=== PATIENT | female | born 1995 | race Caucasian/White ===

== ENCOUNTER 2019-03-27 15:16 | Inpatient (IN) | payer BC ==
[2019-03-27 16:55] LABS: ADD UMIC NO; UR ASCORBIC ACID NEGATIVE (NEGATIVE); UR BILIRUBIN (Dip) NEGATIVE (NEGATIVE); UR BLOOD (Dip) NEGATIVE (NEGATIVE); UR CLARITY CLEAR (CLEAR); UR COLOR YELLOW (YELLOW); UR GLUCOSE (Dip) NEGATIVE (NEGATIVE); UR KETONES (Dip) NEGATIVE (NEGATIVE); UR LEUKOCYTE ESTERASE (Dip) NEGATIVE Leu/ul (NEGATIVE); UR NITRITE (Dip) NEGATIVE (NEGATIVE); UR SPECIFIC GRAVITY (Dip) 1.008 (1.003-1.030); UR TOTAL PROTEIN (Dip) NEGATIVE (NEGATIVE); UR UROBILINOGEN (Dip) NEGATIVE (NEGATIVE)
[2019-03-27 17:07] LABS: ADD MAN DIFF? NO
[2019-03-27 17:10] LABS: WHITE BLOOD COUNT 13.9 10^3/ul (4.8-10.8)
[2019-03-27 17:10] LABS: BASOPHIL # 0.1 10^3/ul (0.0-0.1); BASOPHILS % 0.6 % (0.0-2.0); EOSINOPHILS # 0.1 10^3/ul (0.0-0.5); EOSINOPHILS % 0.5 % (0.0-7.0); HEMATOCRIT 33.9 % (37.0-47.0); HEMOGLOBIN 11.3 g/dl (12.0-16.0); LYMPHOCYTES # 2.6 10^3/ul (0.8-2.9); LYMPHOCYTES % 18.6 % (15.0-51.0); MEAN CORPUSCULAR HEMOGLOBIN 28.1 pg (29.0-33.0); MEAN CORPUSCULAR HGB CONC 33.3 g/dl (32.0-37.0); MEAN CORPUSCULAR VOLUME 84.3 fl (82.0-101.0); MEAN PLATELET VOLUME 10.3 fl (7.4-10.4); MONOCYTE # 0.8 10^3/ul (0.3-0.9); NEUTROPHIL # 10.2 10^3/ul (1.6-7.5); NEUTROPHILS % 73.4 % (39.0-77.0); PLATELET COUNT 265 10^3/UL (140-415); RED BLOOD COUNT 4.02 10^6/ul (4.20-5.40); RED CELL DISTRIBUTION WIDTH 13.8 % (11.5-14.5)
[2019-03-27] MEDS ORDERED: TERBUTALINE 1 ML (18:13)
[2019-03-27] MEDS: TERBUTALINE 1 MG/ML INJ SC ×3 (18:20→22:53)
[2019-03-27] MEDS: LACTATED RINGER'S 1,000 ML IV ×2 (18:20→18:43)
[2019-03-28] MEDS: LACTATED RINGER'S 1,000 ML IV ×3 (02:31→18:26)
[2019-03-28] MEDS: PRENATAL VITAMIN PO (08:56)
[2019-03-28] MEDS: NIFEdipine 10 MG CAP PO (18:11)
[2019-03-28] MEDS: CEFTRIAXONE 1 GM/50 ML (PMX) 50 ML IVPB (18:41)
[2019-03-29] MEDS: DOCUSATE SODIUM 100 MG CAP PO ×3 (00:19→22:10)
[2019-03-29] MEDS: NIFEdipine 10 MG CAP PO ×5 (00:19→23:55)
[2019-03-29] MEDS: LACTATED RINGER'S 1,000 ML IV ×2 (02:47→19:00)
[2019-03-29 03:41] LABS: AMPHETAMINE/METHAMPHETAMINE Negative (NEGATIVE); BARBITURATES Negative (NEGATIVE); BENZODIAZEPINES Negative (NEGATIVE); CANNABINOIDS Negative (NEGATIVE); COCAINE Negative (NEGATIVE); OPIATES Negative (NEGATIVE)
[2019-03-29] MEDS: PRENATAL VITAMIN PO (09:10)
[2019-03-29] MEDS: SOD CHLORIDE 0.9% 1,000 ML IV ×2 (12:22→19:21)
[2019-03-29] MEDS: CEFTRIAXONE 1 GM/50 ML (PMX) 50 ML IVPB (18:42)
[2019-03-30] MEDS: SOD CHLORIDE 0.9% 1,000 ML IV ×2 (05:28)
[2019-03-30] MEDS: NIFEdipine 10 MG CAP PO ×3 (05:58→17:57)
[2019-03-30] MEDS: PRENATAL VITAMIN PO (08:42)
[2019-03-30] MEDS: DOCUSATE SODIUM 100 MG CAP PO ×2 (08:42→21:52)
[2019-03-30] MEDS ORDERED: LACTATED RINGER'S 1,000 ML IV (11:00)
[2019-03-30] MEDS: PROGESTERONE 100 MG CAP VAG (21:52)
[2019-03-30] MEDS: NITROFURANTOIN (SR) 100 MG CAP PO (21:52)
[2019-03-31] MEDS: PRENATAL VITAMIN PO (09:15)
[2019-03-31] MEDS: NITROFURANTOIN (SR) 100 MG CAP PO (09:15)
[2019-03-31] MEDS: DOCUSATE SODIUM 100 MG CAP PO (09:15)
[2019-03-31] MEDS: PROGESTERONE 100 MG CAP VAG (09:16)
== END 2019-03-31 17:21 | disposition home or self-care (01) | DRG 832 ==
LOC: OBT 15:16 → PP1 03-30 10:29 → L-D 15:16 → PP1 03-30 10:30 → L-D 15:40 → OBT 17:43 → L-D 17:43
DX: O23.42 Unspecified infection of urinary tract in pregnancy, second trimester (principal); O26.872 Cervical shortening, second trimester; O47.02 False labor before 37 completed weeks of gestation, second trimester; Z3A.22 22 weeks gestation of pregnancy
CPT/HCPCS: 76815; 76817; 80307; 81003; 85025; 87086

== ENCOUNTER 2019-04-01 17:00 | Inpatient (IN) | payer BC ==
[2019-04-01] MEDS: DOCUSATE SODIUM 100 MG CAP PO (00:30)
[2019-04-01] MEDS ORDERED: NITROFURANTOIN (SR) 100 MG CAP PO (21:30)
[2019-04-01] MEDS ORDERED: PROGESTERONE 100 MG CAP VAG (22:00)
[2019-04-01] MEDS: NITROFURANTOIN (SR) 100 MG CAP PO (23:27)
[2019-04-01] MEDS: PROGESTERONE 100 MG CAP VAG (23:28)
[2019-04-01] MEDS: LACTATED RINGER'S 1,000 ML IV (23:40)
[2019-04-02 00:12] LABS: ADD MAN DIFF? NO
[2019-04-02 00:16] LABS: BASOPHIL # 0.1 10^3/ul (0.0-0.1); BASOPHILS % 0.4 % (0.0-2.0); EOSINOPHILS # 0.1 10^3/ul (0.0-0.5); EOSINOPHILS % 0.8 % (0.0-7.0); HEMATOCRIT 34.6 % (37.0-47.0); HEMOGLOBIN 11.6 g/dl (12.0-16.0); LYMPHOCYTES # 2.2 10^3/ul (0.8-2.9); LYMPHOCYTES % 19.9 % (15.0-51.0); MEAN CORPUSCULAR HGB CONC 33.5 g/dl (32.0-37.0); MEAN CORPUSCULAR VOLUME 83.4 fl (82.0-101.0); MEAN PLATELET VOLUME 10.5 fl (7.4-10.4); MONOCYTE # 0.8 10^3/ul (0.3-0.9); NEUTROPHILS % 71.4 % (39.0-77.0); PLATELET COUNT 300 10^3/UL (140-415); RED BLOOD COUNT 4.15 10^6/ul (4.20-5.40); RED CELL DISTRIBUTION WIDTH 13.5 % (11.5-14.5)
[2019-04-02 00:16] LABS: WHITE BLOOD COUNT 11.2 10^3/ul (4.8-10.8)
[2019-04-02 00:26] LABS: ADD UMIC NO; UR AMORPHOUS CRYSTAL FEW /HPF (NONE SEEN); UR ASCORBIC ACID NEGATIVE (NEGATIVE); UR BACTERIA FEW /HPF (NONE SEEN); UR BILIRUBIN (Dip) NEGATIVE (NEGATIVE); UR BLOOD (Dip) NEGATIVE (NEGATIVE); UR CLARITY SLIGHTLY CLOUDY (CLEAR); UR COLOR STRAW (YELLOW); UR GLUCOSE (Dip) NEGATIVE (NEGATIVE); UR KETONES (Dip) NEGATIVE (NEGATIVE); UR LEUKOCYTE ESTERASE (Dip) NEGATIVE Leu/ul (NEGATIVE); UR NITRITE (Dip) NEGATIVE (NEGATIVE); UR RBC 1 /HPF (0-5); UR SPECIFIC GRAVITY (Dip) 1.004 (1.003-1.030); UR SQUAMOUS EPITHELIAL CELL FEW /HPF (FEW); UR TOTAL PROTEIN (Dip) NEGATIVE (NEGATIVE); UR UROBILINOGEN (Dip) NEGATIVE (NEGATIVE); UR WBC 0 /HPF (0-5)
[2019-04-02 00:49] LABS: INR 0.89; PROTIME 12.2 Sec (11.9-14.9)
[2019-04-02 00:50] LABS: PARTIAL THROMBOPLASTIN TIME 29.2 Sec (23.0-35.0)
[2019-04-02] MEDS: LACTATED RINGER'S 1,000 ML IV ×2 (05:48→16:21)
[2019-04-02] MEDS: DEXTROSE 5%-LR 1,000 ML IV ×4 (06:00→22:00)
[2019-04-02] MEDS: PRENATAL VITAMIN PO (10:08)
[2019-04-02] MEDS: NITROFURANTOIN (SR) 100 MG CAP PO ×2 (10:08→20:55)
[2019-04-02] MEDS: DOCUSATE SODIUM 100 MG CAP PO ×3 (10:08→22:00)
[2019-04-02 11:33] LABS: ALANINE AMINOTRANSFERASE 28 IU/L (13-69); ALBUMIN 3.3 g/dl (3.3-4.9); ALBUMIN/GLOBULIN RATIO 1.03; ALKALINE PHOSPHATASE 58 IU/L (42-121); ANION GAP 8 (5-13); ASPARTATE AMINO TRANSFERASE 29 IU/L (15-46); BLOOD UREA NITROGEN 7 mg/dl (7-20); CARBON DIOXIDE 24 mmol/L (21-31); CHLORIDE 105 mmol/L (97-110); Estimated GFR > 60 mL/min (>60); GLUCOSE 80 mg/dl (70-220); POTASSIUM 3.5 mmol/L (3.5-5.1); SODIUM 137 mmol/L (135-144); TOTAL PROTEIN 6.5 g/dl (6.1-8.1)
[2019-04-02] MEDS: MAGNESIUM SULFATE 4 GM/100 ML 100 ML IV (12:34)
[2019-04-02] MEDS: BETAMET NA PHOS/AC(6 MG/ML) 2 ML INJ SYG IM (13:30)
[2019-04-02] MEDS: MAGNESIUM SULFATE 20 GM/500 ML 500 ML IV (13:44)
[2019-04-02] MEDS: INDOMETHACIN 50 MG PO (16:20)
[2019-04-02 17:35] LABS: RUPTURE FETAL MEMBRANES NEGATIVE (NEGATIVE)
[2019-04-02] MEDS: INDOMETHACIN 25 MG PO (20:55)
[2019-04-02 21:43] LABS: MAGNESIUM 4.4 mg/dl (1.7-2.5)
[2019-04-03] MEDS: INDOMETHACIN 25 MG PO ×4 (03:06→21:11)
[2019-04-03] MEDS: LACTATED RINGER'S 1,000 ML IV ×2 (03:07→07:30)
[2019-04-03] MEDS: MAGNESIUM SULFATE 20 GM/500 ML 500 ML IV (03:10)
[2019-04-03] MEDS: ACETAMINOPHEN 325 MG TAB PO ×2 (03:20→17:26)
[2019-04-03] MEDS: DEXTROSE 5%-LR 1,000 ML IV (06:00)
[2019-04-03 06:56] LABS: MAGNESIUM 5.4 mg/dl (1.7-2.5)
[2019-04-03] MEDS: DOCUSATE SODIUM 100 MG CAP PO ×2 (08:38→21:11)
[2019-04-03] MEDS: NITROFURANTOIN (SR) 100 MG CAP PO ×2 (08:38→21:11)
[2019-04-03] MEDS: PRENATAL VITAMIN PO (08:38)
[2019-04-03 12:52] LABS: MAGNESIUM 5.8 mg/dl (1.7-2.5)
[2019-04-03] MEDS: BETAMET NA PHOS/AC(6 MG/ML) 2 ML INJ SYG IM (13:41)
[2019-04-04] MEDS: INDOMETHACIN 25 MG PO ×4 (03:19→18:04)
[2019-04-04] MEDS: DOCUSATE SODIUM 100 MG CAP PO ×2 (09:43→21:24)
[2019-04-04] MEDS: PRENATAL VITAMIN PO (09:43)
[2019-04-04] MEDS: NITROFURANTOIN (SR) 100 MG CAP PO ×2 (12:17→21:24)
[2019-04-05] MEDS: INDOMETHACIN 25 MG PO ×4 (00:14→17:51)
[2019-04-05] MEDS: NITROFURANTOIN (SR) 100 MG CAP PO ×2 (09:11→21:15)
[2019-04-05] MEDS: PRENATAL VITAMIN PO (09:11)
[2019-04-05] MEDS: DOCUSATE SODIUM 100 MG CAP PO ×2 (09:11→21:15)
[2019-04-06] MEDS: INDOMETHACIN 25 MG PO ×3 (00:13→11:50)
[2019-04-06] MEDS: DOCUSATE SODIUM 100 MG CAP PO ×2 (09:00→21:19)
[2019-04-06] MEDS: PRENATAL VITAMIN PO (09:08)
[2019-04-06] MEDS: NITROFURANTOIN (SR) 100 MG CAP PO ×2 (09:08→21:19)
[2019-04-07] MEDS: NITROFURANTOIN (SR) 100 MG CAP PO (09:47)
[2019-04-07] MEDS: PRENATAL VITAMIN PO (09:47)
[2019-04-07] MEDS: DOCUSATE SODIUM 100 MG CAP PO (09:47)
[2019-04-07] MEDS: AMPICILLIN 500 MG CAP PO ×2 (15:00→23:33)
[2019-04-08] MEDS: AMPICILLIN 500 MG CAP PO ×4 (05:56→19:00)
[2019-04-08] MEDS: DOCUSATE SODIUM 100 MG CAP PO ×3 (10:47→20:53)
[2019-04-08] MEDS: PRENATAL VITAMIN PO (10:47)
[2019-04-09] MEDS: AMPICILLIN 500 MG CAP PO ×5 (00:13→23:57)
[2019-04-09] MEDS: PRENATAL VITAMIN PO (09:32)
[2019-04-09] MEDS: DOCUSATE SODIUM 100 MG CAP PO ×2 (09:32→21:07)
[2019-04-10] MEDS: AMPICILLIN 500 MG CAP PO ×3 (06:22→17:34)
[2019-04-10] MEDS: PRENATAL VITAMIN PO (09:00)
[2019-04-10] MEDS: DOCUSATE SODIUM 100 MG CAP PO ×2 (11:53→21:11)
[2019-04-11] MEDS: AMPICILLIN 500 MG CAP PO ×5 (00:08→23:38)
[2019-04-11] MEDS: DOCUSATE SODIUM 100 MG CAP PO ×2 (10:17→21:30)
[2019-04-11] MEDS: PRENATAL VITAMIN PO (10:17)
[2019-04-12] MEDS: AMPICILLIN 500 MG CAP PO ×4 (06:02→23:35)
[2019-04-12] MEDS: PRENATAL VITAMIN PO (10:12)
[2019-04-12] MEDS: DOCUSATE SODIUM 100 MG CAP PO ×2 (10:12→21:10)
[2019-04-12] MEDS: AL HYDROX/MG HYDROX/SIMETH 30 ML CUP PO (16:54)
[2019-04-12] MEDS: CITRIC ACID/NA CITRATE 30 ML CUP PO (17:37)
[2019-04-13] MEDS: AMPICILLIN 500 MG CAP PO ×4 (05:26→23:47)
[2019-04-13] MEDS: PRENATAL VITAMIN PO (10:48)
[2019-04-13] MEDS: DOCUSATE SODIUM 100 MG CAP PO ×2 (10:48→21:00)
[2019-04-14] MEDS: AMPICILLIN 500 MG CAP PO ×3 (06:09→18:04)
[2019-04-14] MEDS: PRENATAL VITAMIN PO (09:12)
[2019-04-14] MEDS: DOCUSATE SODIUM 100 MG CAP PO ×2 (09:12→21:22)
[2019-04-15] MEDS: AMPICILLIN 500 MG CAP PO ×2 (00:16→06:04)
[2019-04-15] MEDS: DOCUSATE SODIUM 100 MG CAP PO (09:38)
[2019-04-15] MEDS: PRENATAL VITAMIN PO (09:38)
== END 2019-04-15 15:20 | disposition home or self-care (01) | DRG 832 ==
LOC: L-D 17:00 → PP1 04-02
PROVIDERS: Obstetrics & Gynecology
DX: O26.872 Cervical shortening, second trimester (principal); O23.42 Unspecified infection of urinary tract in pregnancy, second trimester; O99.612 Diseases of the digestive system complicating pregnancy, second trimester; Z3A.24 24 weeks gestation of pregnancy
CPT/HCPCS: 76705; 76815; 76817; 80053; 81001; 81003; 83735; 84112; 85025; 85610; 85730; 86850; 86900; 86901; 87086; 93005

== ENCOUNTER 2019-04-20 14:07 | Inpatient (IN) | payer BC ==
[2019-04-20 14:57] LABS: ADD UMIC NO; UR ASCORBIC ACID NEGATIVE (NEGATIVE); UR BACTERIA FEW /HPF (NONE SEEN); UR BILIRUBIN (Dip) NEGATIVE (NEGATIVE); UR BLOOD (Dip) NEGATIVE (NEGATIVE); UR CLARITY SLIGHTLY CLOUDY (CLEAR); UR COLOR YELLOW (YELLOW); UR GLUCOSE (Dip) NEGATIVE (NEGATIVE); UR KETONES (Dip) NEGATIVE (NEGATIVE); UR LEUKOCYTE ESTERASE (Dip) NEGATIVE Leu/ul (NEGATIVE); UR NITRITE (Dip) NEGATIVE (NEGATIVE); UR RBC 1 /HPF (0-5); UR SPECIFIC GRAVITY (Dip) 1.005 (1.003-1.030); UR SQUAMOUS EPITHELIAL CELL FEW /HPF (FEW); UR TOTAL PROTEIN (Dip) NEGATIVE (NEGATIVE); UR UROBILINOGEN (Dip) NEGATIVE (NEGATIVE); UR WBC 1 /HPF (0-5)
[2019-04-20] MEDS ORDERED: NIFEdipine 10 MG CAP (16:21)
[2019-04-20] MEDS: NIFEdipine 10 MG CAP PO ×2 (16:24→23:33)
[2019-04-20] MEDS ORDERED: LACTATED RINGER'S 1,000 ML IV (16:30)
[2019-04-20 18:08] LABS: ADD MAN DIFF? NO
[2019-04-20 18:09] LABS: WHITE BLOOD COUNT 10.4 10^3/ul (4.8-10.8)
[2019-04-20 18:09] LABS: BASOPHIL # 0.1 10^3/ul (0.0-0.1); BASOPHILS % 0.6 % (0.0-2.0); EOSINOPHILS # 0.1 10^3/ul (0.0-0.5); EOSINOPHILS % 0.7 % (0.0-7.0); HEMATOCRIT 32.6 % (37.0-47.0); HEMOGLOBIN 11.1 g/dl (12.0-16.0); LYMPHOCYTES # 1.8 10^3/ul (0.8-2.9); LYMPHOCYTES % 17.4 % (15.0-51.0); MEAN CORPUSCULAR HEMOGLOBIN 28.5 pg (29.0-33.0); MEAN CORPUSCULAR VOLUME 83.8 fl (82.0-101.0); MEAN PLATELET VOLUME 10.3 fl (7.4-10.4); MONOCYTE # 0.6 10^3/ul (0.3-0.9); MONOCYTES % 6.2 % (0.0-11.0); NEUTROPHIL # 7.7 10^3/ul (1.6-7.5); NEUTROPHILS % 74.5 % (39.0-77.0); PLATELET COUNT 269 10^3/UL (140-415); RED BLOOD COUNT 3.89 10^6/ul (4.20-5.40); RED CELL DISTRIBUTION WIDTH 13.4 % (11.5-14.5)
[2019-04-20] MEDS: FERROUS SULFATE (EC) 325 MG TAB PO (23:32)
[2019-04-21] MEDS: NIFEdipine 10 MG CAP PO ×3 (05:39→18:10)
[2019-04-21] MEDS: FERROUS SULFATE (EC) 325 MG TAB PO ×2 (11:41→21:25)
[2019-04-21] MEDS: PRENATAL VITAMIN PO (11:41)
[2019-04-21] MEDS: DOCUSATE SODIUM 100 MG CAP PO (11:41)
[2019-04-21] MEDS: PROGESTERONE 100 MG CAP VAG (21:25)
[2019-04-22] MEDS: NIFEdipine 10 MG CAP PO ×4 (00:13→17:42)
[2019-04-22] MEDS: DOCUSATE SODIUM 100 MG CAP PO (10:42)
[2019-04-22] MEDS: FERROUS SULFATE (EC) 325 MG TAB PO ×2 (10:42→21:35)
[2019-04-22] MEDS: PROGESTERONE 100 MG CAP VAG ×2 (10:42→21:35)
[2019-04-22] MEDS: PRENATAL VITAMIN PO (10:42)
[2019-04-23] MEDS: NIFEdipine 10 MG CAP PO ×5 (00:12→23:49)
[2019-04-23] MEDS: DOCUSATE SODIUM 100 MG CAP PO (10:31)
[2019-04-23] MEDS: PROGESTERONE 100 MG CAP VAG ×2 (10:31→21:11)
[2019-04-23] MEDS: PRENATAL VITAMIN PO (10:31)
[2019-04-23] MEDS: FERROUS SULFATE (EC) 325 MG TAB PO ×2 (10:31→21:11)
[2019-04-24] MEDS: NIFEdipine 10 MG CAP PO ×3 (06:17→18:34)
[2019-04-24] MEDS: FERROUS SULFATE (EC) 325 MG TAB PO ×2 (11:26→21:12)
[2019-04-24] MEDS: PRENATAL VITAMIN PO (11:26)
[2019-04-24] MEDS: DOCUSATE SODIUM 100 MG CAP PO (11:26)
[2019-04-24] MEDS: PROGESTERONE 100 MG CAP VAG ×2 (21:12→21:13)
[2019-04-25] MEDS: NIFEdipine 10 MG CAP PO ×4 (00:02→17:47)
[2019-04-25] MEDS: FERROUS SULFATE (EC) 325 MG TAB PO ×2 (11:35→21:10)
[2019-04-25] MEDS: PRENATAL VITAMIN PO (11:35)
[2019-04-25] MEDS: DOCUSATE SODIUM 100 MG CAP PO (11:35)
[2019-04-25] MEDS: PROGESTERONE 100 MG CAP VAG ×2 (11:36→21:10)
[2019-04-26] MEDS: NIFEdipine 10 MG CAP PO ×4 (00:12→18:22)
[2019-04-26] MEDS: DOCUSATE SODIUM 100 MG CAP PO (10:58)
[2019-04-26] MEDS: FERROUS SULFATE (EC) 325 MG TAB PO ×2 (10:58→21:23)
[2019-04-26] MEDS: PRENATAL VITAMIN PO (10:58)
[2019-04-26] MEDS: PROGESTERONE 100 MG CAP VAG ×2 (18:24→21:00)
[2019-04-27] MEDS: NIFEdipine 10 MG CAP PO ×4 (06:00→18:01)
[2019-04-27] MEDS: DOCUSATE SODIUM 100 MG CAP PO (11:07)
[2019-04-27] MEDS: PROGESTERONE 100 MG CAP VAG ×2 (11:07→21:58)
[2019-04-27] MEDS: PRENATAL VITAMIN PO (11:07)
[2019-04-27] MEDS: FERROUS SULFATE (EC) 325 MG TAB PO ×2 (11:07→21:58)
[2019-04-28] MEDS: NIFEdipine 10 MG CAP PO ×4 (05:49→17:33)
[2019-04-28] MEDS: FERROUS SULFATE (EC) 325 MG TAB PO ×2 (10:28→21:44)
[2019-04-28] MEDS: DOCUSATE SODIUM 100 MG CAP PO (10:28)
[2019-04-28] MEDS: PRENATAL VITAMIN PO (10:28)
[2019-04-28] MEDS: PROGESTERONE 100 MG CAP VAG ×2 (10:28→21:44)
[2019-04-28] MEDS: AL HYDROX/MG HYDROX/SIMETH 30 ML CUP PO (15:26)
[2019-04-28] MEDS: CALCIUM CARBONATE 500 MG CHEW TAB PO (23:28)
[2019-04-29] MEDS: NIFEdipine 10 MG CAP PO ×5 (00:16→23:54)
[2019-04-29] MEDS: AL HYDROX/MG HYDROX/SIMETH 30 ML CUP PO (05:49)
[2019-04-29] MEDS ORDERED: ACETAMINOPHEN 325 MG TAB PO (08:00)
[2019-04-29 08:09] LABS: ADD MAN DIFF? NO
[2019-04-29 08:12] LABS: BASOPHILS % 0.3 % (0.0-2.0); EOSINOPHILS % 0.1 % (0.0-7.0); HEMATOCRIT 33.4 % (37.0-47.0); LYMPHOCYTES # 1.7 10^3/ul (0.8-2.9); LYMPHOCYTES % 11.5 % (15.0-51.0); MEAN CORPUSCULAR HEMOGLOBIN 29.1 pg (29.0-33.0); MEAN CORPUSCULAR HGB CONC 35.9 g/dl (32.0-37.0); MEAN CORPUSCULAR VOLUME 80.9 fl (82.0-101.0); MEAN PLATELET VOLUME 9.9 fl (7.4-10.4); MONOCYTE # 0.6 10^3/ul (0.3-0.9); MONOCYTES % 4.2 % (0.0-11.0); NEUTROPHILS % 83.1 % (39.0-77.0); PLATELET COUNT 263 10^3/UL (140-415); RED BLOOD COUNT 4.13 10^6/ul (4.20-5.40); RED CELL DISTRIBUTION WIDTH 12.8 % (11.5-14.5)
[2019-04-29 08:12] LABS: WHITE BLOOD COUNT 14.4 10^3/ul (4.8-10.8)
[2019-04-29] MEDS: OXYCODONE/ACETAMINOPHEN (5/325) TAB PO (08:25)
[2019-04-29] MEDS: LACTATED RINGER'S 1,000 ML IV ×2 (08:25→16:09)
[2019-04-29] MEDS: FAMOTIDINE 20 MG INJ IV ×2 (08:25→21:00)
[2019-04-29] MEDS: ONDANSETRON 4 MG INJ IV (08:25)
[2019-04-29 08:36] LABS: ALANINE AMINOTRANSFERASE 30 IU/L (13-69); ALBUMIN/GLOBULIN RATIO 1.05; ALKALINE PHOSPHATASE 100 IU/L (42-121); AMYLASE 95 U/L (11-123); ANION GAP 11 (5-13); ASPARTATE AMINO TRANSFERASE 36 IU/L (15-46); BILIRUBIN,INDIRECT 1.1 mg/dl (0-1.1); BILIRUBIN,TOTAL 1.1 mg/dl (0.2-1.3); BLOOD UREA NITROGEN 7 mg/dl (7-20); CALCIUM 9.2 mg/dl (8.4-10.2); CARBON DIOXIDE 21 mmol/L (21-31); CHLORIDE 103 mmol/L (97-110); CREATININE 0.35 mg/dl (0.44-1.00); Estimated GFR > 60 mL/min (>60); GLUCOSE 96 mg/dl (70-220); LIPASE 221 U/L (23-300); POTASSIUM 4.1 mmol/L (3.5-5.1); SODIUM 135 mmol/L (135-144); TOTAL PROTEIN 7.8 g/dl (6.1-8.1)
[2019-04-29] MEDS: CALCIUM CARBONATE 500 MG CHEW TAB PO ×3 (12:50→19:05)
[2019-04-29] MEDS: DOCUSATE SODIUM 100 MG CAP PO (13:19)
[2019-04-29] MEDS: PROGESTERONE 100 MG CAP VAG ×2 (13:19→21:00)
[2019-04-29] MEDS: FERROUS SULFATE (EC) 325 MG TAB PO ×2 (13:20→21:00)
[2019-04-29] MEDS: PRENATAL VITAMIN PO (13:20)
[2019-04-30] MEDS: LACTATED RINGER'S 1,000 ML IV ×2 (00:25→08:32)
[2019-04-30] MEDS: NIFEdipine 10 MG CAP PO ×4 (05:58→23:58)
[2019-04-30] MEDS: DOCUSATE SODIUM 100 MG CAP PO (08:57)
[2019-04-30] MEDS: FAMOTIDINE 20 MG INJ IV ×2 (08:58→21:00)
[2019-04-30] MEDS: FERROUS SULFATE (EC) 325 MG TAB PO ×2 (08:58→21:21)
[2019-04-30] MEDS: PRENATAL VITAMIN PO (08:58)
[2019-04-30] MEDS: CALCIUM CARBONATE 500 MG CHEW TAB PO ×3 (08:58→21:21)
[2019-04-30] MEDS: PROGESTERONE 100 MG CAP VAG ×2 (08:58→21:21)
[2019-05-01] MEDS: NIFEdipine 10 MG CAP PO ×4 (05:26→23:52)
[2019-05-01] MEDS: DOCUSATE SODIUM 100 MG CAP PO (10:39)
[2019-05-01] MEDS: FAMOTIDINE 20 MG TAB PO ×2 (10:39→21:30)
[2019-05-01] MEDS: FERROUS SULFATE (EC) 325 MG TAB PO ×2 (10:40→21:30)
[2019-05-01] MEDS: PRENATAL VITAMIN PO (10:40)
[2019-05-01] MEDS: PROGESTERONE 100 MG CAP VAG ×2 (10:40→21:31)
[2019-05-01] MEDS: CALCIUM CARBONATE 500 MG CHEW TAB PO ×4 (11:35→21:31)
[2019-05-02] MEDS: NIFEdipine 10 MG CAP PO ×4 (06:10→23:58)
[2019-05-02] MEDS: DOCUSATE SODIUM 100 MG CAP PO (09:00)
[2019-05-02] MEDS: FERROUS SULFATE (EC) 325 MG TAB PO ×2 (09:27→21:03)
[2019-05-02] MEDS: PROGESTERONE 100 MG CAP VAG ×2 (09:27→21:03)
[2019-05-02] MEDS: FAMOTIDINE 20 MG TAB PO ×2 (09:27→21:03)
[2019-05-02] MEDS: PRENATAL VITAMIN PO (09:27)
[2019-05-02] MEDS: CALCIUM CARBONATE 500 MG CHEW TAB PO ×2 (09:27→19:10)
[2019-05-03] MEDS: NIFEdipine 10 MG CAP PO ×3 (05:59→19:00)
[2019-05-03] MEDS: DOCUSATE SODIUM 100 MG CAP PO (12:36)
[2019-05-03] MEDS: FAMOTIDINE 20 MG TAB PO ×2 (12:36→22:09)
[2019-05-03] MEDS: CALCIUM CARBONATE 500 MG CHEW TAB PO ×3 (12:36→22:09)
[2019-05-03] MEDS: FERROUS SULFATE (EC) 325 MG TAB PO ×2 (12:37→22:09)
[2019-05-03] MEDS: PRENATAL VITAMIN PO (12:37)
[2019-05-03] MEDS: PROGESTERONE 100 MG CAP VAG ×2 (12:37→22:09)
[2019-05-04] MEDS: NIFEdipine 10 MG CAP PO ×5 (00:11→23:56)
[2019-05-04] MEDS: FERROUS SULFATE (EC) 325 MG TAB PO ×2 (11:36→21:20)
[2019-05-04] MEDS: DOCUSATE SODIUM 100 MG CAP PO (11:36)
[2019-05-04] MEDS: PRENATAL VITAMIN PO (11:36)
[2019-05-04] MEDS: PROGESTERONE 100 MG CAP VAG ×2 (11:36→21:20)
[2019-05-04] MEDS: CALCIUM CARBONATE 500 MG CHEW TAB PO ×3 (11:36→21:20)
[2019-05-04] MEDS: FAMOTIDINE 20 MG TAB PO ×2 (11:37→21:20)
[2019-05-05] MEDS: NIFEdipine 10 MG CAP PO ×3 (06:00→19:31)
[2019-05-05] MEDS: FAMOTIDINE 20 MG TAB PO ×2 (11:23→21:06)
[2019-05-05] MEDS: PROGESTERONE 100 MG CAP VAG ×2 (11:23→21:06)
[2019-05-05] MEDS: PRENATAL VITAMIN PO (11:23)
[2019-05-05] MEDS: FERROUS SULFATE (EC) 325 MG TAB PO ×2 (11:23→21:05)
[2019-05-05] MEDS: DOCUSATE SODIUM 100 MG CAP PO (11:23)
[2019-05-05] MEDS: CALCIUM CARBONATE 500 MG CHEW TAB PO ×3 (11:24→19:32)
[2019-05-06] MEDS: NIFEdipine 10 MG CAP PO ×5 (00:49→23:56)
[2019-05-06] MEDS: FAMOTIDINE 20 MG TAB PO ×2 (09:08→21:50)
[2019-05-06] MEDS: PRENATAL VITAMIN PO (09:08)
[2019-05-06] MEDS: FERROUS SULFATE (EC) 325 MG TAB PO ×2 (09:08→21:51)
[2019-05-06] MEDS: DOCUSATE SODIUM 100 MG CAP PO (09:08)
[2019-05-06] MEDS: PROGESTERONE 100 MG CAP VAG ×2 (09:09→21:51)
[2019-05-06] MEDS: CALCIUM CARBONATE 500 MG CHEW TAB PO ×3 (09:09→21:50)
[2019-05-06] MEDS: DIPHTH/TET/ACEL PERTUSS (ADULT) 0.5 ML VIAL IM* (09:29)
[2019-05-07] MEDS: NIFEdipine 10 MG CAP PO ×4 (05:53→23:39)
[2019-05-07] MEDS: PRENATAL VITAMIN PO (11:16)
[2019-05-07] MEDS: FAMOTIDINE 20 MG TAB PO ×2 (11:16→21:32)
[2019-05-07] MEDS: FERROUS SULFATE (EC) 325 MG TAB PO ×2 (11:17→21:32)
[2019-05-07] MEDS: DOCUSATE SODIUM 100 MG CAP PO (11:17)
[2019-05-07] MEDS: CALCIUM CARBONATE 500 MG CHEW TAB PO ×3 (11:17→18:51)
[2019-05-07] MEDS: PROGESTERONE 100 MG CAP VAG ×2 (11:17→21:32)
[2019-05-08] MEDS: NIFEdipine 10 MG CAP PO ×4 (06:03→23:49)
[2019-05-08] MEDS: FERROUS SULFATE (EC) 325 MG TAB PO ×2 (10:40→21:22)
[2019-05-08] MEDS: DOCUSATE SODIUM 100 MG CAP PO (10:40)
[2019-05-08] MEDS: PRENATAL VITAMIN PO (10:41)
[2019-05-08] MEDS: PROGESTERONE 100 MG CAP VAG ×2 (10:41→21:22)
[2019-05-08] MEDS: CALCIUM CARBONATE 500 MG CHEW TAB PO ×3 (10:41→20:32)
[2019-05-08] MEDS: FAMOTIDINE 20 MG TAB PO ×2 (10:41→20:33)
[2019-05-09] MEDS: NIFEdipine 10 MG CAP PO ×4 (05:53→23:44)
[2019-05-09] MEDS: PROGESTERONE 100 MG CAP VAG ×2 (09:34→21:06)
[2019-05-09] MEDS: PRENATAL VITAMIN PO (09:34)
[2019-05-09] MEDS: FERROUS SULFATE (EC) 325 MG TAB PO ×2 (09:34→21:06)
[2019-05-09] MEDS: DOCUSATE SODIUM 100 MG CAP PO (09:34)
[2019-05-09] MEDS: FAMOTIDINE 20 MG TAB PO ×2 (09:35→21:06)
[2019-05-09] MEDS: CALCIUM CARBONATE 500 MG CHEW TAB PO ×3 (09:38→20:06)
[2019-05-10] MEDS: NIFEdipine 10 MG CAP PO ×3 (06:04→18:11)
[2019-05-10] MEDS: FERROUS SULFATE (EC) 325 MG TAB PO ×2 (10:43→21:34)
[2019-05-10] MEDS: DOCUSATE SODIUM 100 MG CAP PO (10:43)
[2019-05-10] MEDS: PRENATAL VITAMIN PO (10:43)
[2019-05-10] MEDS: FAMOTIDINE 20 MG TAB PO ×2 (10:43→21:34)
[2019-05-10] MEDS: PROGESTERONE 100 MG CAP VAG ×2 (10:44→21:34)
[2019-05-10] MEDS: CALCIUM CARBONATE 500 MG CHEW TAB PO ×3 (10:44→19:50)
[2019-05-11] MEDS: NIFEdipine 10 MG CAP PO ×4 (00:05→18:12)
[2019-05-11] MEDS: DOCUSATE SODIUM 100 MG CAP PO (12:18)
[2019-05-11] MEDS: FAMOTIDINE 20 MG TAB PO ×2 (12:18→21:37)
[2019-05-11] MEDS: CALCIUM CARBONATE 500 MG CHEW TAB PO ×3 (12:18→18:12)
[2019-05-11] MEDS: FERROUS SULFATE (EC) 325 MG TAB PO ×2 (12:18→21:37)
[2019-05-11] MEDS: PRENATAL VITAMIN PO (12:18)
[2019-05-11] MEDS: PROGESTERONE 100 MG CAP VAG ×2 (12:20→21:37)
[2019-05-12] MEDS: NIFEdipine 10 MG CAP PO ×5 (00:10→23:35)
[2019-05-12] MEDS: DOCUSATE SODIUM 100 MG CAP PO (10:07)
[2019-05-12] MEDS: FAMOTIDINE 20 MG TAB PO ×2 (10:07→20:52)
[2019-05-12] MEDS: CALCIUM CARBONATE 500 MG CHEW TAB PO ×3 (10:07→18:10)
[2019-05-12] MEDS: PRENATAL VITAMIN PO (10:07)
[2019-05-12] MEDS: PROGESTERONE 100 MG CAP VAG ×2 (10:07→20:53)
[2019-05-12] MEDS: FERROUS SULFATE (EC) 325 MG TAB PO ×2 (10:07→20:52)
[2019-05-13] MEDS: NIFEdipine 10 MG CAP PO ×3 (05:53→17:49)
[2019-05-13] MEDS: PRENATAL VITAMIN PO (11:16)
[2019-05-13] MEDS: FERROUS SULFATE (EC) 325 MG TAB PO ×2 (11:16→20:56)
[2019-05-13] MEDS: DOCUSATE SODIUM 100 MG CAP PO (11:16)
[2019-05-13] MEDS: CALCIUM CARBONATE 500 MG CHEW TAB PO ×3 (11:17→18:01)
[2019-05-13] MEDS: FAMOTIDINE 20 MG TAB PO ×2 (11:17→20:56)
[2019-05-13] MEDS: PROGESTERONE 100 MG CAP VAG ×2 (11:56→20:56)
[2019-05-14] MEDS: NIFEdipine 10 MG CAP PO ×4 (00:24→18:07)
[2019-05-14] MEDS: PROGESTERONE 100 MG CAP VAG ×2 (09:17→20:55)
[2019-05-14] MEDS: DOCUSATE SODIUM 100 MG CAP PO (09:17)
[2019-05-14] MEDS: CALCIUM CARBONATE 500 MG CHEW TAB PO ×3 (09:17→20:17)
[2019-05-14] MEDS: FERROUS SULFATE (EC) 325 MG TAB PO ×2 (09:17→20:55)
[2019-05-14] MEDS: PRENATAL VITAMIN PO (09:17)
[2019-05-14] MEDS: FAMOTIDINE 20 MG TAB PO ×2 (09:17→20:56)
[2019-05-15] MEDS: NIFEdipine 10 MG CAP PO ×5 (00:10→23:55)
[2019-05-15] MEDS: DOCUSATE SODIUM 100 MG CAP PO (10:59)
[2019-05-15] MEDS: FAMOTIDINE 20 MG TAB PO ×2 (10:59→21:07)
[2019-05-15] MEDS: PRENATAL VITAMIN PO (10:59)
[2019-05-15] MEDS: CALCIUM CARBONATE 500 MG CHEW TAB PO ×3 (10:59→19:05)
[2019-05-15] MEDS: FERROUS SULFATE (EC) 325 MG TAB PO ×2 (10:59→21:07)
[2019-05-15] MEDS: PROGESTERONE 100 MG CAP VAG ×2 (10:59→21:07)
[2019-05-16] MEDS: NIFEdipine 10 MG CAP PO ×4 (06:01→23:54)
[2019-05-16] MEDS: PROGESTERONE 100 MG CAP VAG ×2 (12:15→21:15)
[2019-05-16] MEDS: FERROUS SULFATE (EC) 325 MG TAB PO ×2 (12:16→21:15)
[2019-05-16] MEDS: FAMOTIDINE 20 MG TAB PO ×2 (12:16→21:15)
[2019-05-16] MEDS: DOCUSATE SODIUM 100 MG CAP PO (12:16)
[2019-05-16] MEDS: PRENATAL VITAMIN PO (12:16)
[2019-05-16] MEDS: CALCIUM CARBONATE 500 MG CHEW TAB PO ×3 (18:13→20:40)
[2019-05-17] MEDS: NIFEdipine 10 MG CAP PO ×4 (05:52→23:48)
[2019-05-17] MEDS: PRENATAL VITAMIN PO (12:07)
[2019-05-17] MEDS: CALCIUM CARBONATE 500 MG CHEW TAB PO ×3 (12:07→19:05)
[2019-05-17] MEDS: PROGESTERONE 100 MG CAP VAG ×2 (12:07→21:13)
[2019-05-17] MEDS: FAMOTIDINE 20 MG TAB PO ×2 (12:08→21:13)
[2019-05-17] MEDS: FERROUS SULFATE (EC) 325 MG TAB PO ×2 (12:08→21:13)
[2019-05-17] MEDS: DOCUSATE SODIUM 100 MG CAP PO (12:08)
[2019-05-18] MEDS: NIFEdipine 10 MG CAP PO ×4 (05:33→23:20)
[2019-05-18] MEDS: PROGESTERONE 100 MG CAP VAG ×2 (12:03→21:19)
[2019-05-18] MEDS: FAMOTIDINE 20 MG TAB PO ×2 (12:03→21:19)
[2019-05-18] MEDS: CALCIUM CARBONATE 500 MG CHEW TAB PO ×3 (12:05→19:05)
[2019-05-18] MEDS: PRENATAL VITAMIN PO (12:05)
[2019-05-18] MEDS: DOCUSATE SODIUM 100 MG CAP PO (12:05)
[2019-05-18] MEDS: FERROUS SULFATE (EC) 325 MG TAB PO ×2 (12:05→21:19)
[2019-05-19] MEDS: NIFEdipine 10 MG CAP PO ×3 (06:13→18:13)
[2019-05-19] MEDS: PRENATAL VITAMIN PO (11:44)
[2019-05-19] MEDS: DOCUSATE SODIUM 100 MG CAP PO (11:44)
[2019-05-19] MEDS: PROGESTERONE 100 MG CAP VAG ×2 (11:45→21:11)
[2019-05-19] MEDS: FERROUS SULFATE (EC) 325 MG TAB PO ×2 (11:45→21:11)
[2019-05-19] MEDS: FAMOTIDINE 20 MG TAB PO ×2 (11:45→21:11)
[2019-05-19] MEDS: CALCIUM CARBONATE 500 MG CHEW TAB PO ×3 (11:48→21:11)
[2019-05-20] MEDS: NIFEdipine 10 MG CAP PO ×4 (00:11→18:34)
[2019-05-20] MEDS: PROGESTERONE 100 MG CAP VAG ×2 (11:18→21:25)
[2019-05-20] MEDS: DOCUSATE SODIUM 100 MG CAP PO (11:18)
[2019-05-20] MEDS: FAMOTIDINE 20 MG TAB PO ×2 (11:18→21:25)
[2019-05-20] MEDS: CALCIUM CARBONATE 500 MG CHEW TAB PO ×3 (11:18→19:05)
[2019-05-20] MEDS: PRENATAL VITAMIN PO (11:18)
[2019-05-20] MEDS: FERROUS SULFATE (EC) 325 MG TAB PO ×2 (18:35→21:25)
[2019-05-21] MEDS: NIFEdipine 10 MG CAP PO ×4 (00:10→18:22)
[2019-05-21] MEDS: FAMOTIDINE 20 MG TAB PO ×2 (11:41→21:37)
[2019-05-21] MEDS: PROGESTERONE 100 MG CAP VAG ×2 (11:41→21:37)
[2019-05-21] MEDS: PRENATAL VITAMIN PO (11:41)
[2019-05-21] MEDS: CALCIUM CARBONATE 500 MG CHEW TAB PO ×3 (11:41→19:05)
[2019-05-21] MEDS: FERROUS SULFATE (EC) 325 MG TAB PO ×2 (11:41→21:37)
[2019-05-21] MEDS: DOCUSATE SODIUM 100 MG CAP PO (11:41)
[2019-05-22] MEDS: NIFEdipine 10 MG CAP PO ×5 (00:11→23:51)
[2019-05-22] MEDS: DOCUSATE SODIUM 100 MG CAP PO (11:46)
[2019-05-22] MEDS: FAMOTIDINE 20 MG TAB PO ×2 (11:47→21:28)
[2019-05-22] MEDS: CALCIUM CARBONATE 500 MG CHEW TAB PO ×3 (11:47→19:23)
[2019-05-22] MEDS: FERROUS SULFATE (EC) 325 MG TAB PO ×2 (11:47→21:27)
[2019-05-22] MEDS: PROGESTERONE 100 MG CAP VAG ×2 (11:47→21:28)
[2019-05-22] MEDS: PRENATAL VITAMIN PO (11:47)
[2019-05-23] MEDS: NIFEdipine 10 MG CAP PO ×4 (05:58→23:49)
[2019-05-23] MEDS: FAMOTIDINE 20 MG TAB PO ×2 (12:24→21:38)
[2019-05-23] MEDS: FERROUS SULFATE (EC) 325 MG TAB PO ×2 (12:24→21:38)
[2019-05-23] MEDS: DOCUSATE SODIUM 100 MG CAP PO (12:24)
[2019-05-23] MEDS: PRENATAL VITAMIN PO (12:24)
[2019-05-23] MEDS: CALCIUM CARBONATE 500 MG CHEW TAB PO ×3 (12:24→21:39)
[2019-05-23] MEDS: PROGESTERONE 100 MG CAP VAG ×2 (12:24→21:38)
[2019-05-24] MEDS: NIFEdipine 10 MG CAP PO ×3 (06:04→18:16)
[2019-05-24] MEDS: FAMOTIDINE 20 MG TAB PO ×2 (11:44→21:47)
[2019-05-24] MEDS: PRENATAL VITAMIN PO (11:44)
[2019-05-24] MEDS: DOCUSATE SODIUM 100 MG CAP PO (11:44)
[2019-05-24] MEDS: FERROUS SULFATE (EC) 325 MG TAB PO ×2 (11:44→21:47)
[2019-05-24] MEDS: PROGESTERONE 100 MG CAP VAG ×2 (11:45→21:47)
[2019-05-24] MEDS: CALCIUM CARBONATE 500 MG CHEW TAB PO ×3 (11:45→21:47)
[2019-05-25] MEDS: NIFEdipine 10 MG CAP PO ×4 (00:02→18:16)
[2019-05-25] MEDS: FERROUS SULFATE (EC) 325 MG TAB PO ×2 (11:19→20:09)
[2019-05-25] MEDS: FAMOTIDINE 20 MG TAB PO ×2 (11:20→20:09)
[2019-05-25] MEDS: PROGESTERONE 100 MG CAP VAG ×2 (11:20→21:39)
[2019-05-25] MEDS: CALCIUM CARBONATE 500 MG CHEW TAB PO ×3 (11:20→18:16)
[2019-05-25] MEDS: PRENATAL VITAMIN PO (11:20)
[2019-05-25] MEDS: DOCUSATE SODIUM 100 MG CAP PO (11:20)
[2019-05-26] MEDS: NIFEdipine 10 MG CAP PO ×5 (00:03→23:46)
[2019-05-26] MEDS: PROGESTERONE 100 MG CAP VAG (12:05)
[2019-05-26] MEDS: PRENATAL VITAMIN PO (12:05)
[2019-05-26] MEDS: FAMOTIDINE 20 MG TAB PO ×2 (12:05→21:18)
[2019-05-26] MEDS: FERROUS SULFATE (EC) 325 MG TAB PO ×2 (12:05→21:18)
[2019-05-26] MEDS: CALCIUM CARBONATE 500 MG CHEW TAB PO ×3 (12:05→19:05)
[2019-05-26] MEDS: DOCUSATE SODIUM 100 MG CAP PO (12:06)
[2019-05-27] MEDS: NIFEdipine 10 MG CAP PO ×4 (05:53→23:55)
[2019-05-27] MEDS: PRENATAL VITAMIN PO (09:00)
[2019-05-27] MEDS: DOCUSATE SODIUM 100 MG CAP PO (09:00)
[2019-05-27] MEDS: FAMOTIDINE 20 MG TAB PO ×2 (12:35→21:44)
[2019-05-27] MEDS: FERROUS SULFATE (EC) 325 MG TAB PO ×2 (12:36→21:44)
[2019-05-27] MEDS: CALCIUM CARBONATE 500 MG CHEW TAB PO ×3 (12:36→18:18)
[2019-05-27] MEDS: PROGESTERONE 100 MG CAP PO (21:44)
[2019-05-28] MEDS: NIFEdipine 10 MG CAP PO ×4 (06:19→23:37)
[2019-05-28] MEDS: CALCIUM CARBONATE 500 MG CHEW TAB PO ×3 (11:28→21:09)
[2019-05-28] MEDS: FAMOTIDINE 20 MG TAB PO ×2 (11:29→21:09)
[2019-05-28] MEDS: DOCUSATE SODIUM 100 MG CAP PO (11:29)
[2019-05-28] MEDS: FERROUS SULFATE (EC) 325 MG TAB PO ×2 (11:29→21:09)
[2019-05-28] MEDS: PRENATAL VITAMIN PO (11:31)
[2019-05-28] MEDS: PROGESTERONE 100 MG CAP PO (21:09)
[2019-05-29] MEDS: NIFEdipine 10 MG CAP PO ×3 (06:06→18:07)
[2019-05-29] MEDS: CALCIUM CARBONATE 500 MG CHEW TAB PO ×3 (09:05→19:56)
[2019-05-29] MEDS: PRENATAL VITAMIN PO (12:01)
[2019-05-29] MEDS: DOCUSATE SODIUM 100 MG CAP PO (12:01)
[2019-05-29] MEDS: FAMOTIDINE 20 MG TAB PO ×2 (12:01→21:34)
[2019-05-29] MEDS: FERROUS SULFATE (EC) 325 MG TAB PO ×2 (12:02→21:34)
[2019-05-29] MEDS: PROGESTERONE 100 MG CAP PO (21:34)
[2019-05-30] MEDS: NIFEdipine 10 MG CAP PO ×5 (00:14→23:53)
[2019-05-30] MEDS: PRENATAL VITAMIN PO (09:00)
[2019-05-30] MEDS: DOCUSATE SODIUM 100 MG CAP PO (10:40)
[2019-05-30] MEDS: FERROUS SULFATE (EC) 325 MG TAB PO ×2 (10:40→21:15)
[2019-05-30] MEDS: FAMOTIDINE 20 MG TAB PO ×2 (10:40→21:15)
[2019-05-30] MEDS: CALCIUM CARBONATE 500 MG CHEW TAB PO ×3 (10:40→21:15)
[2019-05-30] MEDS: PROGESTERONE 100 MG CAP PO (21:16)
[2019-05-31] MEDS: NIFEdipine 10 MG CAP PO ×3 (06:09→17:39)
[2019-05-31] MEDS: DOCUSATE SODIUM 100 MG CAP PO (11:36)
[2019-05-31] MEDS: CALCIUM CARBONATE 500 MG CHEW TAB PO ×3 (11:36→19:36)
[2019-05-31] MEDS: FERROUS SULFATE (EC) 325 MG TAB PO ×2 (11:36→21:53)
[2019-05-31] MEDS: FAMOTIDINE 20 MG TAB PO ×2 (11:36→21:53)
[2019-05-31] MEDS: PRENATAL VITAMIN PO (11:37)
[2019-05-31] MEDS: PROGESTERONE 100 MG CAP PO (21:54)
[2019-06-01] MEDS: NIFEdipine 10 MG CAP PO ×5 (00:21→23:54)
[2019-06-01] MEDS: DOCUSATE SODIUM 100 MG CAP PO (12:02)
[2019-06-01] MEDS: FAMOTIDINE 20 MG TAB PO ×2 (12:02→21:18)
[2019-06-01] MEDS: PRENATAL VITAMIN PO (12:02)
[2019-06-01] MEDS: CALCIUM CARBONATE 500 MG CHEW TAB PO ×3 (12:02→21:18)
[2019-06-01] MEDS: FERROUS SULFATE (EC) 325 MG TAB PO ×2 (12:02→21:18)
[2019-06-01] MEDS: PROGESTERONE 100 MG CAP PO (21:18)
[2019-06-02] MEDS: NIFEdipine 10 MG CAP PO ×4 (06:16→23:47)
[2019-06-02] MEDS: CALCIUM CARBONATE 500 MG CHEW TAB PO ×3 (11:35→21:17)
[2019-06-02] MEDS: DOCUSATE SODIUM 100 MG CAP PO (11:35)
[2019-06-02] MEDS: FAMOTIDINE 20 MG TAB PO ×2 (11:35→21:17)
[2019-06-02] MEDS: FERROUS SULFATE (EC) 325 MG TAB PO ×2 (11:35→21:17)
[2019-06-02] MEDS: PRENATAL VITAMIN PO (11:35)
[2019-06-02] MEDS: PROGESTERONE 100 MG CAP PO (21:18)
[2019-06-03] MEDS: NIFEdipine 10 MG CAP PO ×3 (06:04→18:09)
[2019-06-03] MEDS: CALCIUM CARBONATE 500 MG CHEW TAB PO ×3 (11:31→20:12)
[2019-06-03] MEDS: FERROUS SULFATE (EC) 325 MG TAB PO ×2 (11:31→21:43)
[2019-06-03] MEDS: FAMOTIDINE 20 MG TAB PO ×2 (11:31→21:43)
[2019-06-03] MEDS: PRENATAL VITAMIN PO (11:31)
[2019-06-03] MEDS: DOCUSATE SODIUM 100 MG CAP PO (11:31)
[2019-06-03] MEDS: PROGESTERONE 100 MG CAP PO (21:43)
[2019-06-04] MEDS: NIFEdipine 10 MG CAP PO ×5 (00:10→23:58)
[2019-06-04] MEDS: PRENATAL VITAMIN PO (11:20)
[2019-06-04] MEDS: CALCIUM CARBONATE 500 MG CHEW TAB PO ×3 (11:21→19:11)
[2019-06-04] MEDS: FAMOTIDINE 20 MG TAB PO ×2 (11:21→21:33)
[2019-06-04] MEDS: FERROUS SULFATE (EC) 325 MG TAB PO ×2 (11:21→21:33)
[2019-06-04] MEDS: DOCUSATE SODIUM 100 MG CAP PO (11:21)
[2019-06-04] MEDS: PROGESTERONE 100 MG CAP PO ×2 (11:36→21:33)
[2019-06-05] MEDS: NIFEdipine 10 MG CAP PO ×3 (06:15→18:22)
[2019-06-05] MEDS: DOCUSATE SODIUM 100 MG CAP PO (11:59)
[2019-06-05] MEDS: CALCIUM CARBONATE 500 MG CHEW TAB PO ×3 (11:59→19:00)
[2019-06-05] MEDS: FAMOTIDINE 20 MG TAB PO ×2 (11:59→21:13)
[2019-06-05] MEDS: FERROUS SULFATE (EC) 325 MG TAB PO ×2 (12:00→21:13)
[2019-06-05] MEDS: PRENATAL VITAMIN PO (12:00)
[2019-06-05] MEDS: PROGESTERONE 100 MG CAP PO (21:13)
[2019-06-06] MEDS: NIFEdipine 10 MG CAP PO ×5 (00:01→23:32)
[2019-06-06] MEDS: CALCIUM CARBONATE 500 MG CHEW TAB PO ×3 (11:53→19:05)
[2019-06-06] MEDS: FERROUS SULFATE (EC) 325 MG TAB PO ×2 (11:53→21:15)
[2019-06-06] MEDS: FAMOTIDINE 20 MG TAB PO ×2 (11:53→21:15)
[2019-06-06] MEDS: PRENATAL VITAMIN PO (11:53)
[2019-06-06] MEDS: DOCUSATE SODIUM 100 MG CAP PO (11:53)
[2019-06-06] MEDS: PROGESTERONE 100 MG CAP VAG (21:16)
[2019-06-07] MEDS: NIFEdipine 10 MG CAP PO ×4 (06:23→23:57)
[2019-06-07] MEDS: DOCUSATE SODIUM 100 MG CAP PO (11:50)
[2019-06-07] MEDS: FAMOTIDINE 20 MG TAB PO ×2 (11:50→20:58)
[2019-06-07] MEDS: FERROUS SULFATE (EC) 325 MG TAB PO ×2 (11:50→20:58)
[2019-06-07] MEDS: CALCIUM CARBONATE 500 MG CHEW TAB PO ×3 (11:51→18:56)
[2019-06-07] MEDS: PRENATAL VITAMIN PO (11:51)
[2019-06-07] MEDS: PROGESTERONE 100 MG CAP VAG (20:59)
[2019-06-08] MEDS: NIFEdipine 10 MG CAP PO ×4 (06:09→23:35)
[2019-06-08] MEDS: CALCIUM CARBONATE 500 MG CHEW TAB PO ×3 (11:56→19:05)
[2019-06-08] MEDS: DOCUSATE SODIUM 100 MG CAP PO (11:56)
[2019-06-08] MEDS: FAMOTIDINE 20 MG TAB PO ×2 (11:56→21:25)
[2019-06-08] MEDS: FERROUS SULFATE (EC) 325 MG TAB PO ×2 (11:56→21:25)
[2019-06-08] MEDS: PRENATAL VITAMIN PO (17:19)
[2019-06-08] MEDS: PROGESTERONE 100 MG CAP VAG (21:25)
[2019-06-09] MEDS: NIFEdipine 10 MG CAP PO ×4 (05:52→23:59)
[2019-06-09] MEDS: DOCUSATE SODIUM 100 MG CAP PO (09:49)
[2019-06-09] MEDS: CALCIUM CARBONATE 500 MG CHEW TAB PO ×3 (09:49→21:05)
[2019-06-09] MEDS: FAMOTIDINE 20 MG TAB PO ×2 (09:49→21:05)
[2019-06-09] MEDS: FERROUS SULFATE (EC) 325 MG TAB PO ×2 (09:49→21:05)
[2019-06-09] MEDS: PRENATAL VITAMIN PO (09:49)
[2019-06-09] MEDS: PROGESTERONE 100 MG CAP VAG (21:05)
[2019-06-10] MEDS: NIFEdipine 10 MG CAP PO ×3 (05:51→19:31)
[2019-06-10] MEDS: DOCUSATE SODIUM 100 MG CAP PO (12:16)
[2019-06-10] MEDS: FAMOTIDINE 20 MG TAB PO ×2 (12:16→21:45)
[2019-06-10] MEDS: PRENATAL VITAMIN PO (12:16)
[2019-06-10] MEDS: FERROUS SULFATE (EC) 325 MG TAB PO ×2 (12:16→21:45)
[2019-06-10] MEDS: CALCIUM CARBONATE 500 MG CHEW TAB PO ×3 (12:17→19:31)
[2019-06-10] MEDS: PROGESTERONE 100 MG CAP VAG (21:45)
[2019-06-11] MEDS: NIFEdipine 10 MG CAP PO ×5 (00:37→23:54)
[2019-06-11] MEDS: FAMOTIDINE 20 MG TAB PO ×2 (12:09→21:45)
[2019-06-11] MEDS: CALCIUM CARBONATE 500 MG CHEW TAB PO ×3 (12:09→20:31)
[2019-06-11] MEDS: PRENATAL VITAMIN PO (12:09)
[2019-06-11] MEDS: DOCUSATE SODIUM 100 MG CAP PO (12:09)
[2019-06-11] MEDS: FERROUS SULFATE (EC) 325 MG TAB PO ×2 (12:10→21:45)
[2019-06-11] MEDS: PROGESTERONE 100 MG CAP VAG (21:46)
[2019-06-11] MEDS: DIPHENHYDRAMINE 25 MG CAP PO (23:53)
[2019-06-12] MEDS: NIFEdipine 10 MG CAP PO ×4 (06:06→23:52)
[2019-06-12] MEDS: DOCUSATE SODIUM 100 MG CAP PO (12:07)
[2019-06-12] MEDS: FERROUS SULFATE (EC) 325 MG TAB PO ×2 (12:07→21:36)
[2019-06-12] MEDS: PRENATAL VITAMIN PO (12:07)
[2019-06-12] MEDS: FAMOTIDINE 20 MG TAB PO ×2 (12:07→21:36)
[2019-06-12] MEDS: CALCIUM CARBONATE 500 MG CHEW TAB PO ×3 (12:07→19:47)
[2019-06-12] MEDS: PROGESTERONE 100 MG CAP VAG (21:36)
[2019-06-12] MEDS: DIPHENHYDRAMINE 25 MG CAP PO (23:58)
[2019-06-13] MEDS: NIFEdipine 10 MG CAP PO ×4 (05:55→23:30)
[2019-06-13] MEDS: CALCIUM CARBONATE 500 MG CHEW TAB PO ×3 (12:05→20:19)
[2019-06-13] MEDS: FAMOTIDINE 20 MG TAB PO ×2 (12:06→21:21)
[2019-06-13] MEDS: FERROUS SULFATE (EC) 325 MG TAB PO ×2 (12:06→21:21)
[2019-06-13] MEDS: PRENATAL VITAMIN PO (12:06)
[2019-06-13] MEDS: DOCUSATE SODIUM 100 MG CAP PO (12:06)
[2019-06-13] MEDS: PROGESTERONE 100 MG CAP VAG (21:21)
[2019-06-14] MEDS: DIPHENHYDRAMINE 25 MG CAP PO (01:33)
[2019-06-14] MEDS: NIFEdipine 10 MG CAP PO ×4 (06:45→23:46)
[2019-06-14] MEDS: DOCUSATE SODIUM 100 MG CAP PO (12:25)
[2019-06-14] MEDS: FERROUS SULFATE (EC) 325 MG TAB PO ×2 (12:26→21:34)
[2019-06-14] MEDS: PRENATAL VITAMIN PO (12:26)
[2019-06-14] MEDS: FAMOTIDINE 20 MG TAB PO ×2 (12:26→21:34)
[2019-06-14] MEDS: CALCIUM CARBONATE 500 MG CHEW TAB PO ×3 (12:26→19:05)
[2019-06-14] MEDS: PROGESTERONE 100 MG CAP VAG (21:35)
[2019-06-15] MEDS: NIFEdipine 10 MG CAP PO ×4 (06:20→23:42)
[2019-06-15] MEDS: CALCIUM CARBONATE 500 MG CHEW TAB PO ×3 (12:00→21:34)
[2019-06-15] MEDS: FAMOTIDINE 20 MG TAB PO ×2 (12:00→21:34)
[2019-06-15] MEDS: PRENATAL VITAMIN PO (12:00)
[2019-06-15] MEDS: FERROUS SULFATE (EC) 325 MG TAB PO ×2 (12:00→21:34)
[2019-06-15] MEDS: DOCUSATE SODIUM 100 MG CAP PO (12:00)
[2019-06-15] MEDS: PROGESTERONE 100 MG CAP VAG (21:34)
[2019-06-16] MEDS: NIFEdipine 10 MG CAP PO ×3 (06:31→18:05)
[2019-06-16] MEDS: FERROUS SULFATE (EC) 325 MG TAB PO ×2 (10:51→21:35)
[2019-06-16] MEDS: FAMOTIDINE 20 MG TAB PO ×2 (10:51→21:35)
[2019-06-16] MEDS: PRENATAL VITAMIN PO (10:51)
[2019-06-16] MEDS: DOCUSATE SODIUM 100 MG CAP PO (10:51)
[2019-06-16] MEDS: CALCIUM CARBONATE 500 MG CHEW TAB PO ×3 (10:52→18:59)
[2019-06-16] MEDS: CEPASTAT LOZENGE MT ×2 (14:46→18:59)
[2019-06-16] MEDS: PROGESTERONE 100 MG CAP VAG (21:35)
[2019-06-17] MEDS: NIFEdipine 10 MG CAP PO ×5 (00:13→23:31)
[2019-06-17] MEDS: DIPHENHYDRAMINE 25 MG CAP PO ×2 (00:15→23:38)
[2019-06-17] MEDS: DOCUSATE SODIUM 100 MG CAP PO (12:13)
[2019-06-17] MEDS: PRENATAL VITAMIN PO (12:13)
[2019-06-17] MEDS: CALCIUM CARBONATE 500 MG CHEW TAB PO ×3 (12:13→18:00)
[2019-06-17] MEDS: FAMOTIDINE 20 MG TAB PO ×2 (12:13→21:16)
[2019-06-17] MEDS: FERROUS SULFATE (EC) 325 MG TAB PO ×2 (12:13→21:17)
[2019-06-17] MEDS: PROGESTERONE 100 MG CAP VAG (21:17)
[2019-06-18] MEDS: NIFEdipine 10 MG CAP PO ×3 (06:01→23:46)
[2019-06-18] MEDS: FAMOTIDINE 20 MG TAB PO ×2 (09:09→21:17)
[2019-06-18] MEDS: CALCIUM CARBONATE 500 MG CHEW TAB PO ×3 (09:09→21:17)
[2019-06-18] MEDS: PRENATAL VITAMIN PO (09:09)
[2019-06-18] MEDS: FERROUS SULFATE (EC) 325 MG TAB PO ×2 (09:09→21:17)
[2019-06-18] MEDS: DOCUSATE SODIUM 100 MG CAP PO (09:09)
[2019-06-18] MEDS: PROGESTERONE 100 MG CAP VAG (21:17)
[2019-06-19] MEDS: NIFEdipine 10 MG CAP PO ×3 (05:48→18:13)
[2019-06-19] MEDS: DOCUSATE SODIUM 100 MG CAP PO (11:52)
[2019-06-19] MEDS: FAMOTIDINE 20 MG TAB PO ×2 (11:52→21:48)
[2019-06-19] MEDS: PRENATAL VITAMIN PO (11:52)
[2019-06-19] MEDS: CALCIUM CARBONATE 500 MG CHEW TAB PO ×3 (11:53→19:30)
[2019-06-19] MEDS: FERROUS SULFATE (EC) 325 MG TAB PO ×2 (11:54→21:48)
[2019-06-19] MEDS: PROGESTERONE 100 MG CAP VAG (21:48)
[2019-06-20] MEDS: NIFEdipine 10 MG CAP PO ×3 (00:17→11:35)
[2019-06-20] MEDS: FAMOTIDINE 20 MG TAB PO ×2 (11:34→21:40)
[2019-06-20] MEDS: FERROUS SULFATE (EC) 325 MG TAB PO ×2 (11:34→21:39)
[2019-06-20] MEDS: CALCIUM CARBONATE 500 MG CHEW TAB PO ×3 (11:34→21:39)
[2019-06-20] MEDS: PRENATAL VITAMIN PO (11:34)
[2019-06-20] MEDS: DOCUSATE SODIUM 100 MG CAP PO (11:34)
[2019-06-20 14:16] LABS: ADD MAN DIFF? NO
[2019-06-20 14:19] LABS: BASOPHIL # 0.1 10^3/ul (0.0-0.1); BASOPHILS % 0.5 % (0.0-2.0); EOSINOPHILS # 0.1 10^3/ul (0.0-0.5); HEMATOCRIT 33.8 % (37.0-47.0); HEMOGLOBIN 11.4 g/dl (12.0-16.0); LYMPHOCYTES # 1.6 10^3/ul (0.8-2.9); LYMPHOCYTES % 16.4 % (15.0-51.0); MEAN CORPUSCULAR HEMOGLOBIN 28.9 pg (29.0-33.0); MEAN CORPUSCULAR HGB CONC 33.7 g/dl (32.0-37.0); MEAN CORPUSCULAR VOLUME 85.6 fl (82.0-101.0); MEAN PLATELET VOLUME 9.9 fl (7.4-10.4); MONOCYTE # 0.8 10^3/ul (0.3-0.9); MONOCYTES % 8.5 % (0.0-11.0); NEUTROPHIL # 6.9 10^3/ul (1.6-7.5); NEUTROPHILS % 72.1 % (39.0-77.0); PLATELET COUNT 237 10^3/UL (140-415); RED BLOOD COUNT 3.95 10^6/ul (4.20-5.40); RED CELL DISTRIBUTION WIDTH 13.2 % (11.5-14.5)
[2019-06-20 14:19] LABS: WHITE BLOOD COUNT 9.6 10^3/ul (4.8-10.8)
[2019-06-20] MEDS: PROGESTERONE 100 MG CAP VAG (21:40)
[2019-06-21] MEDS: DOCUSATE SODIUM 100 MG CAP PO (10:50)
[2019-06-21] MEDS: FAMOTIDINE 20 MG TAB PO ×2 (10:50→21:33)
[2019-06-21] MEDS: CALCIUM CARBONATE 500 MG CHEW TAB PO ×3 (10:50→21:34)
[2019-06-21] MEDS: PRENATAL VITAMIN PO (10:50)
[2019-06-21] MEDS: FERROUS SULFATE (EC) 325 MG TAB PO ×2 (10:50→21:33)
[2019-06-21] MEDS: PROGESTERONE 100 MG CAP VAG (21:34)
[2019-06-22] MEDS: FERROUS SULFATE (EC) 325 MG TAB PO ×2 (10:38→21:11)
[2019-06-22] MEDS: DOCUSATE SODIUM 100 MG CAP PO (10:38)
[2019-06-22] MEDS: FAMOTIDINE 20 MG TAB PO ×2 (10:38→21:11)
[2019-06-22] MEDS: PRENATAL VITAMIN PO (10:38)
[2019-06-22] MEDS: CALCIUM CARBONATE 500 MG CHEW TAB PO ×3 (10:38→19:21)
[2019-06-22] MEDS: PROGESTERONE 100 MG CAP VAG (21:12)
[2019-06-23] MEDS: CALCIUM CARBONATE 500 MG CHEW TAB PO ×3 (11:27→19:05)
[2019-06-23] MEDS: FERROUS SULFATE (EC) 325 MG TAB PO ×2 (11:27→21:31)
[2019-06-23] MEDS: FAMOTIDINE 20 MG TAB PO ×2 (11:27→21:31)
[2019-06-23] MEDS: DOCUSATE SODIUM 100 MG CAP PO (11:27)
[2019-06-23] MEDS: PRENATAL VITAMIN PO (11:27)
[2019-06-23] MEDS: PROGESTERONE 100 MG CAP VAG (21:31)
[2019-06-24] MEDS: FAMOTIDINE 20 MG TAB PO ×2 (12:00→22:07)
[2019-06-24] MEDS: DOCUSATE SODIUM 100 MG CAP PO (12:01)
[2019-06-24] MEDS: PRENATAL VITAMIN PO (12:01)
[2019-06-24] MEDS: FERROUS SULFATE (EC) 325 MG TAB PO ×2 (12:01→22:07)
[2019-06-24] MEDS: CALCIUM CARBONATE 500 MG CHEW TAB PO (12:03)
[2019-06-24] MEDS ORDERED: ACETAMINOPHEN 325 MG TAB PO (21:00)
[2019-06-24] MEDS ORDERED: AL HYDROX/MG HYDROX/SIMETH 30 ML CUP PO (21:00)
[2019-06-24] MEDS: PROGESTERONE 100 MG CAP VAG (22:08)
[2019-06-25] MEDS: FAMOTIDINE 20 MG TAB PO ×2 (11:08→21:16)
[2019-06-25] MEDS: PRENATAL VITAMIN PO (11:08)
[2019-06-25] MEDS: FERROUS SULFATE (EC) 325 MG TAB PO ×2 (11:08→21:16)
[2019-06-25] MEDS: DOCUSATE SODIUM 100 MG CAP PO (11:08)
[2019-06-25] MEDS: CALCIUM CARBONATE 500 MG CHEW TAB PO ×3 (11:08→19:05)
[2019-06-25] MEDS: PROGESTERONE 100 MG CAP VAG (21:16)
[2019-06-26] MEDS: FERROUS SULFATE (EC) 325 MG TAB PO ×2 (09:36→21:29)
[2019-06-26] MEDS: FAMOTIDINE 20 MG TAB PO ×2 (09:36→21:29)
[2019-06-26] MEDS: DOCUSATE SODIUM 100 MG CAP PO (09:36)
[2019-06-26] MEDS: CALCIUM CARBONATE 500 MG CHEW TAB PO ×3 (09:36→19:05)
[2019-06-26] MEDS: PRENATAL VITAMIN PO (09:36)
[2019-06-26] MEDS: PROGESTERONE 100 MG CAP VAG (21:29)
[2019-06-27] MEDS: PRENATAL VITAMIN PO (11:13)
[2019-06-27] MEDS: CALCIUM CARBONATE 500 MG CHEW TAB PO ×3 (11:13→21:23)
[2019-06-27] MEDS: FERROUS SULFATE (EC) 325 MG TAB PO ×2 (11:13→21:23)
[2019-06-27] MEDS: FAMOTIDINE 20 MG TAB PO ×2 (11:13→21:23)
[2019-06-27] MEDS: DOCUSATE SODIUM 100 MG CAP PO (11:13)
[2019-06-27] MEDS: PROGESTERONE 100 MG CAP VAG (21:23)
[2019-06-28] MEDS: CALCIUM CARBONATE 500 MG CHEW TAB PO ×3 (12:07→20:31)
[2019-06-28] MEDS: FERROUS SULFATE (EC) 325 MG TAB PO ×2 (12:07→21:41)
[2019-06-28] MEDS: FAMOTIDINE 20 MG TAB PO ×2 (12:07→21:41)
[2019-06-28] MEDS: PRENATAL VITAMIN PO (12:07)
[2019-06-28] MEDS: DOCUSATE SODIUM 100 MG CAP PO (12:07)
[2019-06-28] MEDS: PROGESTERONE 100 MG CAP VAG (21:41)
[2019-06-29] MEDS: PRENATAL VITAMIN PO (10:38)
[2019-06-29] MEDS: FERROUS SULFATE (EC) 325 MG TAB PO ×2 (10:38→21:32)
[2019-06-29] MEDS: CALCIUM CARBONATE 500 MG CHEW TAB PO ×3 (10:39→21:32)
[2019-06-29] MEDS: FAMOTIDINE 20 MG TAB PO ×2 (10:39→21:32)
[2019-06-29] MEDS: DOCUSATE SODIUM 100 MG CAP PO (10:39)
[2019-06-29] MEDS: PROGESTERONE 100 MG CAP VAG (21:32)
[2019-06-30] MEDS: CALCIUM CARBONATE 500 MG CHEW TAB PO ×3 (09:35→21:18)
[2019-06-30] MEDS: PRENATAL VITAMIN PO (09:35)
[2019-06-30] MEDS: FAMOTIDINE 20 MG TAB PO ×2 (09:35→21:18)
[2019-06-30] MEDS: FERROUS SULFATE (EC) 325 MG TAB PO ×2 (09:36→21:18)
[2019-06-30] MEDS: DOCUSATE SODIUM 100 MG CAP PO (09:36)
[2019-06-30] MEDS: PROGESTERONE 100 MG CAP VAG (21:18)
[2019-07-01] MEDS: PRENATAL VITAMIN PO (10:26)
[2019-07-01] MEDS: FAMOTIDINE 20 MG TAB PO (10:26)
[2019-07-01] MEDS: FERROUS SULFATE (EC) 325 MG TAB PO (10:27)
[2019-07-01] MEDS: CALCIUM CARBONATE 500 MG CHEW TAB PO ×2 (10:27→14:09)
[2019-07-01] MEDS: DOCUSATE SODIUM 100 MG CAP PO (10:27)
== END 2019-07-01 18:39 | disposition home or self-care (01) | DRG 832 ==
LOC: OBT 14:07 → PP1 05-13 15:50 → L-D 14:07 → OBT 14:46 → PP1 14:46
DX: O26.873 Cervical shortening, third trimester (principal); O47.03 False labor before 37 completed weeks of gestation, third trimester; Z3A.35 35 weeks gestation of pregnancy
CPT/HCPCS: 76815; 76816; 76817; 76818; 76820; 80053; 81001; 81003; 82150; 82950; 83690; 85025; 86900; 86901; 87086; 90715

== ENCOUNTER 2019-07-15 14:17 | Outpatient (CLI) | payer BC | END 2019-07-15 20:25 | disposition home or self-care (01) | LOC: OBT 14:17 → L-D 14:20 → OBT 20:25 | DX: O62.9 Abnormality of forces of labor, unspecified (principal); Z3A.37 37 weeks gestation of pregnancy | CPT/HCPCS: 76815; 76818 ==